=== PATIENT | female | born 1980 | race Caucasian/White ===

== ENCOUNTER 2016-09-12 12:54 | Emergency (ER) | payer SELFPAY ==
[2016-09-12 13:08] VITALS: BP 143/81
--- NOTE | 2016-09-12 13:24 | UC ---
Respiratory Complaint HPI - HPI Summary HPI Summary: patient has seasonal allergies and has developed bilateral ear pain, sinus pressure and SOB with a barky cough. - History of Current Complaint Chief Complaint: UCRespiratory Stated Complaint: UPPER RESPIRATORY COMPLAINT Time Seen by Provider: 09/12/16 13:11 Hx Obtained From: Patient Hx Last Menstrual Period: today ?: No Onset/Duration: Sudden Onset, Lasting Days Timing: Constant Severity Initially: Moderate Severity Currently: Severe Character: Cough: Nonproductive Aggravating Factors: Allergens, Exertion, Deep Breaths, Recumbent Position Alleviating Factors: Nothing Associated Signs And Symptoms: Positive: Dyspnea, Wheezing, URI, Nasal Congestion - Allergies/Home Medications Allergies/Adverse Reactions: Allergies Allergy/AdvReac Type Severity Reaction Status Date / Time Bee Venom Allergy Difficulty Verified 09/12/16 13:09 Breathing/Wheezing Sulfa Antibiotics AdvReac Tachycardia Verified 09/12/16 13:08 Home Medications: Home Medications Dextromethorphan Polistirex [Robitussin 12 Hour Cough] 30 mg PO ONCE PRN [History Confirmed 09/12/16] Epi-Pen 1 dose IM ONCE PRN 09/12/16 [History Confirmed 09/12/16] O C 1 dose PO DAILY 09/12/16 [History Confirmed 09/12/16] Omeprazole CAP* [Prilosec CAP* 20 MG] 40 mg PO 1700 09/12/16 [History Confirmed 09/12/16] Sertraline* [Zoloft*] 100 mg PO DAILY 09/12/16 [History Confirmed 09/12/16] PMH/Surg Hx/FS Hx/Imm Hx Previously Healthy: Yes - Surgical History Surgical History: Yes Surgery Procedure, Year, and Place: cholecystectomy 2009 - Family History Known Family History: Positive: Hypertension - Social History Alcohol Use: Occasionally Substance Use Type: Excessive Caffeine Smoking Status (MU): Current Some Day Smoker Review of Systems Constitutional: Negative Skin: Negative Eyes: Negative ENT: Sore Throat, Ear Ache, Nasal Discharge Respiratory: Shortness Of Breath, Cough Cardiovascular: Negative Gastrointestinal: Negative Genitourinary: Negative Motor: Negative Neurovascular: Negative Musculoskeletal: Negative Neurological: Headache Psychological: Negative All Other Systems Reviewed And Are Negative: Yes Physical Exam Triage Information Reviewed: Yes Appearance: Well-Nourished, Ill-Appearing, Pain Distress Vital Signs: Initial Vital Signs Temp 98.5 F 09/12/16 12:59 Pulse 74 09/12/16 12:59 Resp 18 09/12/16 12:59 BP 143/81 09/12/16 12:59 Pulse Ox 100 09/12/16 12:59 Vital Signs Reviewed: Yes Eye Exam: Normal Eyes: Positive: Conjunctiva Clear ENT Exam: Normal ENT: Positive: Hearing grossly normal, Pharynx normal, TMs normal Dental Exam: Normal Neck exam: Normal Neck: Positive: Supple, Nontender, No Lymphadenopathy Respiratory Exam: Normal Respiratory: Positive: Chest non-tender, Respiratory distress - mild, Rhonchi, Wheezing, Inspiration Cardiovascular Exam: Normal Cardiovascular: Positive: RRR, No Murmur, Pulses Normal Abdominal Exam: Normal Abdomen Description: Positive: Nontender, No Organomegaly, Soft Bowel Sounds: Positive: Present Musculoskeletal Exam: Normal Neurological Exam: Normal Psychological Exam: Normal Skin Exam: Normal UC Diagnostic Evaluation - Laboratory O2 Sat by Pulse Oximetry: 100 Respiratory Course/Dx - Course Course Of Treatment: hx obtained, exam performed, meds reviewed, treated for sinusitis and bronchospasm - Differential Dx/Diagnosis Differential Diagnosis/HQI/PQRI: Aspiration, Asthma, Bronchitis, Influenza, Laryngitis, Sinusitis Provider Diagnoses: sinusitis. bronchospasm Discharge - Discharge Plan Condition: Stable Disposition: HOME Prescriptions: Albuterol HFA INHALER* [Ventolin HFA Inhaler*] 2 puff INH Q6H PRN #1 mdi PRN Reason: Sob/Wheezing Amoxicillin/Clavulanate TAB* [Augmentin TAB 875*] 875 mg PO BID #20 tab predniSONE TAB* [Deltasone TAB*] 40 mg PO DAILY #14 tab Patient Education Materials: Sinusitis (ED), Bronchospasm (ED) Referrals: Karen Butt [Primary Care Provider] - Additional Instructions: 1. Use the medication as prescribed. 2. Increase your fluid intake and get plenty of rest 3. Follow up with any worsening symptoms
== END 2016-09-12 13:50 | disposition home or self-care (01) ==
LOC: UCCORT 12:54
DX: J32.9 Chronic sinusitis, unspecified (principal); J98.01 Acute bronchospasm; Z88.2 Allergy status to sulfonamides; Z91.030 Bee allergy status; Z90.49 Acquired absence of other specified parts of digestive tract; Z72.0 Tobacco use
CPT/HCPCS: 99212; G0463